=== PATIENT | male | born 1990 | race Caucasian/White ===

== ENCOUNTER 2017-09-03 01:42 | Inpatient (IN) | payer OTHER ==
[2017-09-03] MEDS: HALOPERIDOL 5 MG/ML VIAL (J1630) IM (02:07)
[2017-09-03] MEDS: diphenhydrAMINE INJ 50MG/ML VIAL (J1200) IM (02:26)
[2017-09-03 03:17] LABS: HEMATOCRIT 45.6 % (42.0-52.0); HEMOGLOBIN 15.2 g/dl (13.5-17.5); MEAN CORPUSCULAR HEMOGLOBIN 28.3 pg (27.0-33.0); MEAN CORPUSCULAR HGB CONC 33.3 g/dl (32.0-36.5); MEAN CORPUSCULAR VOLUME 84.9 fl (80.0-96.0); PLATELET COUNT, AUTOMATED 347 10^3/uL (150-450); RED BLOOD COUNT 5.37 10^6/uL (4.30-6.10); RED CELL DISTRIBUTION WIDTH 13.1 % (11.5-14.5); WHITE BLOOD COUNT 7.6 10^3/uL (4.0-10.0)
[2017-09-03 03:30] LABS: AMPHETAMINES LEVEL URINE NEGATIVE (NEGATIVE); BARBITURATES URINE NEGATIVE (NEGATIVE); BENZODIAZEPINES URINE NEGATIVE (NEGATIVE); CANNABINOIDS URINE NEGATIVE (NEGATIVE); COCAINE METABOLITE URINE NEGATIVE (NEGATIVE); METHADONE URINE NEGATIVE (NEGATIVE); OPIATES URINE NEGATIVE (NEGATIVE); PHENCYCLIDINE URINE NEGATIVE (NEGATIVE)
[2017-09-03 03:41] LABS: ALBUMIN 4.3 GM/DL (3.2-5.2); ALKALINE PHOSPHATASE 88 U/L (45-117); ALT/SGPT 45 U/L (12-78); ANION GAP 10 MEQ/L (8-16); AST/SGOT 20 U/L (7-37); BILIRUBIN,DIRECT < 0.1 MG/DL (0.0-0.2); BILIRUBIN,TOTAL 0.2 MG/DL (0.2-1.0); BLOOD UREA NITROGEN 18 MG/DL (7-18); CALCIUM LEVEL 8.7 MG/DL (8.5-10.1); CARBON DIOXIDE LEVEL 24 MEQ/L (21-32); CHLORIDE LEVEL 110 MEQ/L (98-107); CREATININE FOR GFR 1.05 MG/DL (0.70-1.30); ETHYL ALCOHOL (ETHANOL) 0.201 % (0.000-0.010); GLOMERULAR FILTRATION RATE > 60.0 (>60); GLUCOSE, FASTING 98 MG/DL (70-100); POTASSIUM SERUM 4.1 MEQ/L (3.5-5.1); SALICYLATE LEVEL < 1.7 MG/DL (5.0-30.0); SODIUM LEVEL 144 MEQ/L (136-145); TOTAL PROTEIN 8.2 GM/DL (6.4-8.2)
[2017-09-03 03:42] LABS: ACETAMINOPHEN LEVEL < 2.0 UG/ML (10.0-30.0)
[2017-09-03] MEDS ORDERED: MOM 30ML SUSPENSION UDC PO (10:45)
[2017-09-03] MEDS ORDERED: MAALOX 30 ML SUSP *UDC PO (10:45)
[2017-09-03] MEDS ORDERED: ACETAMINOPHEN TAB 650MG DOSE (2X325MG) PO (10:45)
[2017-09-03] MEDS: NICOTINE 14 MG/24 HR TRANSDERMAL TD (14:55)
[2017-09-03] MEDS: diphenhydrAMINE 50 MG CAP PO (14:55)
[2017-09-03] MEDS: traZODone 50 MG TAB PO (21:22)
[2017-09-03] MEDS: LOTRISONE CREAM 15 GM (BETAMETH/CLOTRIMAZOLE) TOP (22:20)
[2017-09-04] MEDS: diphenhydrAMINE 50 MG CAP PO ×2 (09:11→21:32)
[2017-09-04] MEDS: LOTRISONE CREAM 15 GM (BETAMETH/CLOTRIMAZOLE) TOP ×2 (09:11→21:00)
[2017-09-04] MEDS: NICOTINE 14 MG/24 HR TRANSDERMAL TD (09:11)
[2017-09-04] MEDS: traZODone 50 MG TAB PO (21:32)
[2017-09-04] MEDS: QUEtiapine FUMARATE 100 MG TAB PO (23:06)
[2017-09-05] MEDS: NICOTINE 14 MG/24 HR TRANSDERMAL TD (08:54)
[2017-09-05] MEDS: SERTRALINE HCL 50 MG TAB PO (08:54)
[2017-09-05] MEDS: LOTRISONE CREAM 15 GM (BETAMETH/CLOTRIMAZOLE) TOP (08:54)
[2017-09-05] MEDS ORDERED: QUEtiapine FUMARATE 50 MG TAB PO (21:00)
== END 2017-09-05 10:25 | disposition home or self-care (01) | DRG 882 ==
LOC: M ED 01:42 → M ED INP 10:35 → M PSY 13:15
DX: F43.23 Adjustment disorder with mixed anxiety and depressed mood (principal); F10.94 Alcohol use, unspecified with alcohol-induced mood disorder; Z79.899 Other long term (current) drug therapy

== ENCOUNTER 2017-11-02 02:10 | Emergency (ER) | payer OTHER ==
[2017-11-02] MEDS: diphenhydrAMINE INJ 50MG/ML VIAL (J1200) IV (02:46)
[2017-11-02] MEDS: HALOPERIDOL 5 MG/ML VIAL (J1630) IV (02:46)
[2017-11-02] MEDS ORDERED: LORazepam 2 MG/ML VIAL (J2060) As Ordered (02:46)
[2017-11-02] MEDS: LORazepam 2 MG/ML VIAL (J2060) IV ×2 (02:50→03:01)
[2017-11-02] MEDS: NS 1,000 ML IV (03:38)
== END 2017-11-02 08:02 | disposition home or self-care (01) ==
LOC: M ED 02:10
DX: S02.2XXA Fracture of nasal bones, initial encounter for closed fracture (principal); S02.401A Maxillary fracture, unspecified side, initial encounter for closed fracture; F10.129 Alcohol abuse with intoxication, unspecified; F69 Unspecified disorder of adult personality and behavior; X58.XXXA Exposure to other specified factors, initial encounter; Y92.410 Unspecified street and highway as the place of occurrence of the external cause; Y93.9 Activity, unspecified; Y99.9 Unspecified external cause status
CPT/HCPCS: J2060

== ENCOUNTER 2017-11-02 14:12 | Emergency (ER) | payer OTHER ==
[2017-11-02] MEDS: ONDANSETRON 4 MG ORAL DISINTEGRATING TAB (Q0162 PER 1MG) PO (14:48)
== END 2017-11-02 15:52 | disposition home or self-care (01) ==
LOC: M ED 14:12
DX: F07.81 Postconcussional syndrome (principal)
CPT/HCPCS: Q0162

== ENCOUNTER 2018-01-05 22:41 | Emergency (ER) | payer OTHER ==
[2018-01-05 23:11] LABS: HEMATOCRIT 44.7 % (42.0-52.0); HEMOGLOBIN 15.2 g/dl (13.5-17.5); MEAN CORPUSCULAR HEMOGLOBIN 28.3 pg (27.0-33.0); MEAN CORPUSCULAR VOLUME 83.2 fl (80.0-96.0); PLATELET COUNT, AUTOMATED 311 10^3/uL (150-450); RED BLOOD COUNT 5.37 10^6/uL (4.30-6.10); RED CELL DISTRIBUTION WIDTH 12.7 % (11.5-14.5); WHITE BLOOD COUNT 9.2 10^3/uL (4.0-10.0)
[2018-01-05 23:53] LABS: ALBUMIN 4.1 GM/DL (3.2-5.2); ALBUMIN/GLOBULIN RATIO 1.17 (1.00-1.93); ALKALINE PHOSPHATASE 78 U/L (45-117); ALT/SGPT 101 U/L (12-78); ANION GAP 13 MEQ/L (8-16); AST/SGOT 51 U/L (7-37); BILIRUBIN,DIRECT < 0.1 MG/DL (0.0-0.2); BILIRUBIN,TOTAL 0.3 MG/DL (0.2-1.0); BLOOD UREA NITROGEN 10 MG/DL (7-18); CALCIUM LEVEL 8.6 MG/DL (8.5-10.1); CARBON DIOXIDE LEVEL 22 MEQ/L (21-32); CHLORIDE LEVEL 106 MEQ/L (98-107); ETHYL ALCOHOL (ETHANOL) 0.175 % (0.000-0.010); GLOMERULAR FILTRATION RATE > 60.0 (>60); GLUCOSE, FASTING 98 MG/DL (70-100); POTASSIUM SERUM 3.6 MEQ/L (3.5-5.1); SALICYLATE LEVEL < 1.7 MG/DL (5.0-30.0); SODIUM LEVEL 141 MEQ/L (136-145); TOTAL PROTEIN 7.6 GM/DL (6.4-8.2)
[2018-01-05 23:54] LABS: ACETAMINOPHEN LEVEL < 2.0 UG/ML (10.0-30.0)
[2018-01-06] MEDS: HYDROMORPHONE HCL 0.5 MG/ 0.5 ML SYRINGE (J1170 PER 1) IM (00:13)
[2018-01-06] MEDS: NORCO 5/325MG TABLET (BULK FOR ED) PO (00:15)
== END 2018-01-06 00:37 | disposition home or self-care (01) ==
LOC: M ED 01-06 00:37
DX: S52.501A Unspecified fracture of the lower end of right radius, initial encounter for closed fracture (principal); W13.4XXA Fall from, out of or through window, initial encounter; Y92.019 Unspecified place in single-family (private) house as the place of occurrence of the external cause
CPT/HCPCS: J1170

== ENCOUNTER 2018-01-06 02:46 | Emergency (ER) | payer OTHER ==
[2018-01-06] MEDS: NORCO, ANEXSIA 5/325MG TABLET (HYDROcodone/ACETAMINOPHEN) PO (08:29)
== END 2018-01-06 08:49 | disposition home or self-care (01) ==
LOC: M ED 02:46
DX: M25.571 Pain in right ankle and joints of right foot (principal); M25.572 Pain in left ankle and joints of left foot; Z79.899 Other long term (current) drug therapy
CPT/HCPCS: 73620

== ENCOUNTER 2018-01-07 06:40 | Emergency (ER) | payer OTHER ==
[2018-01-07] MEDS: PERCOCET 5MG/325MG TAB PO (07:57)
== END 2018-01-07 11:56 | disposition home or self-care (01) ==
LOC: M ED 06:40
DX: S92.001A Unspecified fracture of right calcaneus, initial encounter for closed fracture (principal); S92.002A Unspecified fracture of left calcaneus, initial encounter for closed fracture; S52.501A Unspecified fracture of the lower end of right radius, initial encounter for closed fracture; S32.018A Other fracture of first lumbar vertebra, initial encounter for closed fracture; X58.XXXA Exposure to other specified factors, initial encounter; Y92.9 Unspecified place or not applicable; Y93.9 Activity, unspecified; Y99.9 Unspecified external cause status; M51.26 Other intervertebral disc displacement, lumbar region; Z72.0 Tobacco use; Z79.899 Other long term (current) drug therapy
CPT/HCPCS: 73200

== ENCOUNTER → 2018-01-07 | Outpatient (CLI) | payer OTHER | LOC: M RAD 15:42 | DX: M25.531 Pain in right wrist (principal) ==